=== PATIENT | male | born 1970 | race Two or more races ===

== ENCOUNTER 2016-05-23 10:39 | Emergency (ER) | payer MEDICAID ==
[2016-05-23 12:15] LABS: URINE BILIRUBIN NEGATIVE (NEGATIVE); URINE GLUCOSE (UA) NEGATIVE (NEGATIVE); URINE LEUKOCYTE ESTERASE NEGATIVE (NEGATIVE); URINE NITRITE NEGATIVE (NEGATIVE); URINE UROBILINOGEN NORMAL (0-1 mg/dl)
[2016-05-23 12:22] LABS: URINE BLOOD TRACE (NEGATIVE); URINE PROTEIN TRACE (NEGATIVE)
[2016-05-23 12:28] LABS: URINE APPEARANCE CLEAR; URINE COLOR YELLOW
[2016-05-23 12:35] LABS: URINE BACTERIA 0; URINE EPITHELIAL CELLS FEW /hpf; URINE RBC 0-1 /hpf; URINE WBC NEG /hpf
== END 2016-05-23 13:13 | disposition home or self-care (01) ==
LOC: ED 10:39
DX: G44.209 Tension-type headache, unspecified, not intractable (principal); R63.4 Abnormal weight loss; F17.210 Nicotine dependence, cigarettes, uncomplicated; Z83.3 Family history of diabetes mellitus